=== PATIENT | female | born 1990 | race Caucasian/White ===

== ENCOUNTER 2021-12-03 11:09 | Emergency (ER) | payer BC, SELFPAY ==
[2021-12-03 11:10] VITALS: BP 109/84; PULSE 82; RESP 18; TEMP 36.2; O2SAT 97; BMI 23.8
[2021-12-03 11:12] VITALS: BP 109/84; PULSE 82; RESP 18; TEMP 36.2; O2SAT 97
--- NOTE | 2021-12-03 11:37 | CT_ITS ---
STUDY: CT ABDOMEN AND PELVIS WITHOUT CONTRAST REASON FOR EXAM: Female, 31 years old. Left lower quadrant pain. History of kidney stones. RADIATION DOSAGE (If Supplied By Facility): CTDIvol = ( 7.62 ) mGy, DLP = ( 361.5 ) mGycm TECHNIQUE: Transaxial images were obtained from the dome of the diaphragm to the symphysis pubis without oral contrast, and without intravenous contrast. Sagittal and coronal images were reconstructed. Individualized dose optimization techniques were used for this CT. COMPARISON: None. FINDINGS: The visualized lung bases are unremarkable. The visualized portions of the heart are within normal limits. Normal liver. Normal gallbladder and extrahepatic biliary system. Normal spleen. Normal pancreas. Normal bilateral adrenal glands. Normal right kidney. Normal left kidney. Normal visualized stomach. Normal small intestine. Normal colon. There are surgical clips in the region of the appendix consistent with a prior appendectomy. Normal abdominal aorta. Normal inferior vena cava. Normal retroperitoneum. Normal urinary bladder. The uterus is retroverted. There is a small umbilical hernia containing fat. Normal osseous structures. CT/Abdomen/Pelvis without Cont IMPRESSION: The patient is status post appendectomy. Retroverted uterus. Electronically Signed: Geoff Butler MD at 12:38 EST ,
--- NOTE | 2021-12-03 11:38 | EX.ED.DYSGE1 ---
HPI History of Present Illness Chief Complaint: Abd Pain Informant: patient Narrative Narrative: 31-year-old female states that last week she began to feel like she is having a UTI so she went to see her doctor and they did a urine culture and started her on Keflex. She was not feeling better and she started to get pain in the left flank so she spoke with the on-call doctor who called her in Flomax Bactrim and Pyridium. She states that today she is having pain in the left lower abdomen and nausea. No diarrhea. No fevers. PFSH PFS Medical History Anxiety Depression Home Medications hydrocodone-acetaminophen 1 tab PO Q6H PRN PRN #10 tablet 12/27/15 [Rx Last Taken Unknown] hydrocodone-acetaminophen 1 tab PO Q6H PRN PRN 3 Days #12 tablet 12/03/21 [Rx Last Taken Unknown] Allergy/AdvReac Type Severity Reaction Status Date / Time paroxetine HCl [From Paxil] AdvReac Nausea Verified 12/03/21 11:12 Social History (Updated 12/03/21 @ 11:[address] Tong Shannon DO) Smoking Status: Never smoker substance use type: does not use ROS ROS ED Constitutional Constitutional ED: Denies chills or weight loss Eyes Eyes: Denies change in vision or diplopia ENT ENT ED: Denies ear pain, rhinorrhea or sore throat Cardiovascular Cardiovascular: Denies chest pain, orthopnea, palpitations or racing heartbeat Respiratory/Chest Respiratory/Chest: Denies cough, dyspnea or orthopnea Gastrointestinal Gastrointestinal: Reports abdominal pain and nausea; Denies diarrhea or vomiting Genitourinary Genitourinary ED: Reports dysuria and hematuria; Denies urinary frequency Musculoskeletal Musculoskeletal: Denies arthralgias or myalgias Integumentary Denies abscess or rash Neurologic Neurologic: Denies headache(s) or weakness Psychiatric Psychiatric: Denies anxiety, depression, suicidal ideation or suicidal thoughts Endocrine Endocrinology: Denies polydipsia, polyphagia or polyuria Allergic/Immunologic Allergic/Immunologic ED: Denies mouth swelling, tongue swelling or urticaria EXAM Physical Exam Const Vital Signs: 12/03/21 11:10 12/03/21 11:12 Temperature 97.2 F L 97.2 F L Temperature Source Temporal Temporal Pulse Rate 82 82 Respiratory Rate 18 18 Blood Pressure 109/84 H 109/84 H Blood Pressure Mean 92 92 Pulse Ox 97 97 Oxygen Delivery Method Room Air Room Air Positive well nourished and well developed General Appearance ED: well developed HEENT Reports normocephalic, head/scalp atraumatic, TM's clear and moist mucous membranes Negative for trauma Tympanic Membrane ED: Yes TM's clear Eyes PERRL and EOMs intact bilaterally Neck no lymphadenopathy, supple and no JVD Resp normal respiratory effort and clear to auscultation bilaterally Cardio regular rate, regular rhythm and no murmurs GI non-distended Auscultation: normoactive bowel sounds Palpation: soft and tender LLQ Back/Spine no CVA tenderness and normal ROM Extremity normal to inspection General Extremety ED: Negative for edema General Extremity: Negative for edema Neuro oriented x3 and CN's II-XII intact bilaterally Sensorium / Orientation: alert Motor Exam: strength 5/5 throughout Psych mental status grossly normal Mood & Affect: Negative for depressed or tearful Skin no rashes or lesions noted and no wounds MDM MDM MDM Narrative Medical decision making narrative: White count 3.8. BMP is normal test is negative. Urinalysis does not show any overt infection. CT the abdomen pelvis does not demonstrate any findings to explain her pain. I will write for the patient have pain medication follow-up if not improving return if worsening or concerns Lab Data Attestation: I reviewed the patient's lab results. Labs: Laboratory Results - last 24 hr 12/03/21 12/03/21 12/03/21 12:00 12:00 12:00 WBC 3.8 L RBC 4.56 Hgb 13.8 Hct 41.5 MCV 91.0 MCH 30.3 MCHC 33.3 RDW Std Deviation 41.2 RDW Coeff of Kisha 12.5 Plt Count 295 MPV 9.7 Immature Gran % (Auto) 0.300 Neut % (Auto) 61.4 Lymph % (Auto) 25.7 [place] % (Auto) 9.7 Eos % (Auto) 2.1 Baso % (Auto) 0.8 Absolute Neuts (auto) 2.4 Absolute Lymphs (auto) 0.98 Nucleated RBC % 0 Sodium 136 Potassium 3.7 Chloride 105 Carbon Dioxide 27.0 Anion Gap 4 L BUN 12 Creatinine 0.90 Estim Creat Clear Calc 87.27 Est GFR (MDRD) Af Amer 93 Est GFR (MDRD) Non-Af 77 BUN/Creatinine Ratio 13.3 Glucose 99 Calcium 9.3 Serum , Qual NEGATIVE Urine Color Urine Clarity Urine pH Ur Specific Walker Urine Protein Urine Glucose (UA) Urine Ketones Urine Occult Blood Urine Nitrite Urine Bilirubin Urine Urobilinogen Ur Leukocyte Esterase Urine RBC Urine WBC Ur Squamous Epith Cells Urine Bacteria Urine Mucus 12/03/21 12:00 WBC RBC Hgb Hct MCV MCH MCHC RDW Std Deviation RDW Coeff of Kisha Plt Count MPV Immature Gran % (Auto) Neut % (Auto) Lymph % (Auto) [place] % (Auto) Eos % (Auto) Baso % (Auto) Absolute Neuts (auto) Absolute Lymphs (auto) Nucleated RBC % Sodium Potassium Chloride Carbon Dioxide Anion Gap BUN Creatinine Estim Creat Clear Calc Est GFR (MDRD) Af Amer Est GFR (MDRD) Non-Af BUN/Creatinine Ratio Glucose Calcium Serum , Qual Urine Color Mey Urine Clarity Sl. Cloudy Urine pH 7.0 Ur Specific Walker 1.005 Urine Protein Negative Urine Glucose (UA) Normal Urine Ketones Negative Urine Occult Blood Negative Urine Nitrite Positive H Urine Bilirubin 3 H Urine Urobilinogen 4 H Ur Leukocyte Esterase Negative Urine RBC 0-5 SEEN Urine WBC 0 SEEN Ur Squamous Epith Cells 0-5 SEEN Urine Bacteria RARE Urine Mucus 0 SEEN Radiography Diagnostic Testing: Clinical Impression(s) from Imaging Studies Abdomen/Pelvis CT 12/03/21 11:37 IMPRESSION: The patient is status post appendectomy. Retroverted uterus. Electronically Signed: Geoff Butler MD at 12:38 EST , Discharge Plan Triage Chief Complaint: Abd Pain ED Provider: Tong Shannon Dx/Rx/DC Orders Clinical Impression: Abdominal pain Instructions: ED Abdominal Pain Unkn Cause Fem Prescriptions: New hydrocodone-acetaminophen [hydrocodone-acetaminophen] 1 TABLET tablet 1 tab PO Q6H PRN PRN (Reason: Pain) 3 Days Qty: 12 RF: 0 No Action hydrocodone-acetaminophen 1 TABLET tablet 1 tab PO Q6H PRN PRN (Reason: Pain) Qty: 10 RF: 0 Primary Care Provider: Maynor Ferro: Maynor Ferro MD [Primary Care Provider] - As soon as possible Disposition Disposition: Home, Self Care
[2021-12-03 12:08] LABS: Mucous, Urine 0 SEEN /hpf (<or=2+); White Blood Cells 0 SEEN /hpf (0-5)
[2021-12-03 12:10] LABS: Color, Urine Amber (Yellow); Glucose, Dipstick Normal (Normal); Ketone-Dipstick Negative (Negative); Leukocyte Esterase-Dipstick Negative /ul (Negative); Nitrite-Dipstick Positive (Negative); Occult Blood-Urine Negative /ul (Negative); Protein-Dipstick Negative (Negative); Specific Gravity, Urine 1.005 (1.002-1.030); Urine Clarity Sl. Cloudy (Clear); Urine Urobilinogen 4 mg/dl (Normal)
[2021-12-03 12:11] LABS: Absolute Lymphocyte Count 0.98 X10^3/uL (0.83-4.51); Absolute Neutrophil Count 2.4 X10^3/uL (2.0-7.7); Basophil# 0.03 X10^3/uL; Basophil% 0.8 % (0-1); Eosinophil# 0.08 X10^3/uL; Eosinophils% 2.1 % (0-5); Hematocrit 41.5 % (37-47); Hemoglobin 13.8 g/dL (12.0-15.0); Lymphocyte # 0.98 X10^3/ul (0.83-4.51); Lymphocyte % 25.7 % (19-41); Mean Corp Hgb Conc 33.3 g/dL (32-36); Mean Corpuscular Hgb 30.3 pg (27.0-32.0); Mean Platelet Vol. 9.7 fl (6.2-12.0); Monocyte# 0.37 X10^3/uL; Monocyte% 9.7 % (0-10); NRBC Flagged by Analyzer 0 % (0-5); Neutrophil # 2.35 X10^3/uL (2.7-7.7); Neutrophil % 61.4 % (47-70); Platelet Count 295 K/mm3 (150-450); RBC Distribution Width CV 12.5 % (11.6-14.6); RBC Distribution Width SD 41.2 fl (35.1-43.9); Red Blood Count 4.56 M/mm3 (4.2-5.4); Urine Bilirubin Dipstick 3 mg/dL (Negative); White Blood Count 3.8 K/mm3 (4.4-11.0)
[2021-12-03 12:21] LABS: Bacteria RARE /hpf (None Seen); Red Blood Cells-Urine 0-5 SEEN /hpf (0-5); Squamous Epithelial Cells - UA 0-5 SEEN /hpf (5-10)
[2021-12-03 12:23] LABS: Anion Gap 4 (5-15); BUN 12 mg/dL (7-18); BUN/Creat Ratio 13.3 RATIO (10-20); Calcium,Total 9.3 mg/dL (8.5-10.1); Chloride 105 mmol/L (98-107); EST Glomerular Filtration Rate 77 mL/min (>60); Est Glom Filt Rate - Afr Amer 93 mL/min (>60); Estimated Creatinine Clearance 87.27 ml/min; Glucose 99 mg/dL (74-106); Potassium 3.7 mmol/L (3.5-5.1); Sodium Level 136 mmol/L (136-145)
[2021-12-03 12:49] LABS: Internal QC Validated? YES +Cl - CLEAR BKGD; Pregnancy, Serum, hCG Quali. NEGATIVE Negative
== END 2021-12-03 14:10 | disposition home or self-care (01) ==
PROVIDERS: Emergency Provider Emergency Medicine; PCP Family Medicine; Visit Provider Emergency Medicine
DX: R10.30 Lower abdominal pain, unspecified (principal)
CPT/HCPCS: 74176; 80048; 81001; 84703; 85025; 99283; A4216